=== PATIENT | male | born 1965 | race Hispanic/Latino ===

== ENCOUNTER 2018-02-16 01:04 | Emergency (ER) | payer BC ==
[2018-02-16 01:24] VITALS: BMI 37.3
[2018-02-16 01:28] VITALS: BP 163/109; PULSE 103; RESP 16; TEMP 98.8; O2SAT 96
[2018-02-16] MEDS ORDERED: Oxycodone/Acetaminophen 5/325 mg Tab PO STA (01:45)
--- NOTE | 2018-02-16 01:59 | ED PDOC ---
HPI: Back Time Seen by Provider: 02/16/18 01:33 Chief Complaint (Nursing): Back Pain Chief Complaint (Provider): Left lower back pain x 3 days History Per: Patient History/Exam Limitations: no limitations Onset/Duration Of Symptoms: Days Current Symptoms Are (Timing): Still Present Quality Of Discomfort: Sharp Description Of Injury (Context): None Previous Symptoms: None Associated Symptoms: None Exacerbating Factor(s): Movement Additional Complaint(s): Pt reports left lower back pain for 3 days. Pt taking tylenol and motrin which were helping somewhat. Pt states that he felt the pain return this evening and took a flexeril he had laying around which helped. Pt states he was sitting on the floor and when he went to get up he felt a sharp pain radiating down the left leg to thigh. PT denies trauma. Pt denies similar in the past. Pt denies bladder or bowel incontinence. No numbness/tingling. No fever/chills Past Medical History Reviewed: Historical Data, Nursing Documentation, Vital Signs Vital Signs: Last Vital Signs Temp 98.8 F 02/16/18 01:24 Pulse 103 H 02/16/18 01:24 Resp 16 02/16/18 01:24 BP 163/109 H 02/16/18 01:24 Pulse Ox 96 02/16/18 01:24 - Medical History PMH: No Chronic Diseases - Surgical History Surgical History: No Surg Hx - Family History Family History: States: No Known Family Hx - Living Arrangements Living Arrangements: With Family - Social History Current smoker - smoking cessation education provided: No - Home Medications Home Medications: Ambulatory Orders Medication Instructions Recorded oxyCODONE/Acetaminophen [Percocet 1 ea PO Q6H PRN #10 tab 02/16/18 5/325 mg Tab] predniSONE [predniSONE Tab] 20 mg PO DAILY #12 tab 02/16/18 - Allergies Allergies/Adverse Reactions: Allergies Allergy/AdvReac Type Severity Reaction Status Date / Time No Known Allergies Allergy Verified 02/16/18 01:24 Review of Systems ROS Statement: Except As Marked, All Systems Reviewed And Found Negative Constitutional: Negative for: Fever, Chills Gastrointestinal: Negative for: Nausea, Vomiting, Abdominal Pain Musculoskeletal: Positive for: Back Pain Physical Exam - Reviewed Nursing Documentation Reviewed: Yes Vital Signs Reviewed: Yes - Physical Exam Appears: Positive for: Well, Non-toxic, No Acute Distress Head Exam: Positive for: ATRAUMATIC, NORMAL INSPECTION, NORMOCEPHALIC Skin: Positive for: Normal Color, Warm, DRY Eye Exam: Positive for: Normal appearance ENT: Positive for: Normal ENT Inspection Neck: Positive for: Normal, Painless ROM Cardiovascular/Chest: Positive for: Regular Rate, Rhythm Respiratory: Positive for: Normal Breath Sounds. Negative for: Accessory Muscle Use, Respiratory Distress Back: Positive for: Normal Inspection, Other ((+) left leg raise ). Negative for: Vertebral Tenderness, Muscle Spasm Extremity: Positive for: Normal ROM Neurologic/Psych: Positive for: Alert, Oriented - ECG O2 Sat by Pulse Oximetry: 96 Pulse Ox Interpretation: Normal Disposition - Clinical Impression Clinical Impression: Sciatica - Disposition Disposition: Routine/Home Disposition Time: 03:40 Condition: STABLE Prescriptions: oxyCODONE/Acetaminophen [Percocet 5/325 mg Tab] 1 ea PO Q6H PRN #10 tab PRN Reason: Pain, Severe (8-10) predniSONE [predniSONE Tab] 20 mg PO DAILY #12 tab Instructions: Sciatica Forms: [employer] (Estonian)
[2018-02-16] MEDS ORDERED: Oxycodone/Acetaminophen 5/325 mg Tab ONE (02:09)
== END 2018-02-16 03:56 | disposition home or self-care (01) ==
LOC: H.ER 01:04
DX: M54.32 Sciatica, left side (principal)
CPT/HCPCS: 96372; 99283; J2930